=== PATIENT | male | born 1965 ===

== ENCOUNTER 2016-10-21 15:18 | Day surgery (SDC) | payer SELFPAY ==
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
[~2016-10-21 15:18] MED LIST: *DENIES
[2016-10-21 16:45] LABS: HEMOGLOBIN 15.3 g/dL (13.6-17.8)
== END 2016-10-21 20:48 | disposition home or self-care (01) ==
LOC: SDC 15:18
PROVIDERS: Oral & Maxillofacial Surgery
PROC: 0NSV04Z Reposition Left Mandible with Internal Fixation Device, Open Approach (ICD-10-PCS; principal; 2016-10-21 17:15)
DX: S02.609A Fracture of mandible, unspecified, initial encounter for closed fracture (principal); F17.210 Nicotine dependence, cigarettes, uncomplicated
CPT/HCPCS: 85014; 85018; A9270-GY; J0690; J2250; J2270; J2405; J3010